=== PATIENT | male | born 1965 | race Caucasian/White ===

== ENCOUNTER 2018-12-23 08:09 | Day surgery (SDC) | payer OTHER ==
[~2018-12-23] VITALS: Ht 177.8 cm; Wt 77.7 kg
== END 2018-12-23 10:00 | disposition home or self-care (01) ==
LOC: ORSCSDS 08:09
PROVIDERS: Internal Medicine Gastroenterology
PROC: 0DBP8ZX Excision of Rectum, Via Natural or Artificial Opening Endoscopic, Diagnostic (ICD-10-PCS; principal; 2018-12-23 09:30)
PROC: 0DBN8ZX Excision of Sigmoid Colon, Via Natural or Artificial Opening Endoscopic, Diagnostic (ICD-10-PCS; principal; 2018-12-23 09:30)
DX: Z12.11 Encounter for screening for malignant neoplasm of colon (principal); D12.5 Benign neoplasm of sigmoid colon; D12.8 Benign neoplasm of rectum; K57.30 Diverticulosis of large intestine without perforation or abscess without bleeding; K64.8 Other hemorrhoids; I10 Essential (primary) hypertension; Z87.891 Personal history of nicotine dependence
CPT/HCPCS: 88305; J2250; J2704; J7120

== ENCOUNTER 2019-07-30 08:46 | Day surgery (SDC) | payer OTHER | END 2019-07-30 23:52 | disposition home or self-care (01) | LOC: RAD 08:46 | DX: M24.412 Recurrent dislocation, left shoulder (principal); M19.012 Primary osteoarthritis, left shoulder; M75.82 Other shoulder lesions, left shoulder; S43.432A Superior glenoid labrum lesion of left shoulder, initial encounter | CPT/HCPCS: 20610; 73222; 77002; A9577; Q9967 ==

== ENCOUNTER 2020-02-03 13:06 | Day surgery (SDC) | payer OTHER ==
[~2020-02-03] VITALS: Ht 177.8 cm; Wt 72.4 kg
[~2020-02-03 13:06] MED LIST: Voltaren100 GM
--- NOTE | 2020-02-03 14:00 | NUR ---
02/03/20 1400 Shelly Hall PRP DRAWN, ANTICOAG ADDED, DELIVERED TO OR AND SPUN.
--- NOTE | 2020-02-03 15:10 | NUR ---
02/03/20 1510 Sonya Cardenas 1MG/CC EPI ADDED INTO FIRST 3 BAGS OF EPI.
--- NOTE | 2020-02-03 16:11 | NUR ---
02/03/20 4501 Ramona Ricardo RECEIVED REPORT FROM GISELLE ALLEN. PATIENT IN GURNEY, AWAKE AND TALKING AND ANSWERING QUESTIONS APPROPRIATELY. WILL MOVE TO STEPDOWN.
== END 2020-02-03 17:08 | disposition home or self-care (01) ==
LOC: ORSCSDS 13:06
PROVIDERS: Orthopaedic Surgery
PROC: 0RNK4ZZ Release Left Shoulder Joint, Percutaneous Endoscopic Approach (ICD-10-PCS; principal; 2020-02-03 14:30)
PROC: 0LU247Z Supplement Left Shoulder Tendon with Autologous Tissue Substitute, Percutaneous Endoscopic Approach (ICD-10-PCS; principal; 2020-02-03 14:30)
PROC: 0LQ24ZZ Repair Left Shoulder Tendon, Percutaneous Endoscopic Approach (ICD-10-PCS; principal; 2020-02-03 14:30)
PROC: 0RQK4ZZ Repair Left Shoulder Joint, Percutaneous Endoscopic Approach (ICD-10-PCS; principal; 2020-02-03 14:30)
DX: M75.112 Incomplete rotator cuff tear or rupture of left shoulder, not specified as traumatic (principal); M75.42 Impingement syndrome of left shoulder; M19.012 Primary osteoarthritis, left shoulder; M24.412 Recurrent dislocation, left shoulder; S43.002A Unspecified subluxation of left shoulder joint, initial encounter; E78.5 Hyperlipidemia, unspecified; Z87.891 Personal history of nicotine dependence; Z79.899 Other long term (current) drug therapy
CPT/HCPCS: C1713; J0171; J0690; J1100; J1885; J2250; J2405; J2704; J2710; J3010; J7120

== ENCOUNTER 2020-08-17 10:21 | Day surgery (SDC) | payer OTHER ==
[~2020-08-17] VITALS: Ht 177.8 cm; Wt 75.5 kg
[~2020-08-17 10:21] MED LIST changes: +Percocet 5-3251 EACH
--- NOTE | 2020-08-17 11:03 | NUR ---
08/17/20 1103 TABATHA CALLAHAN INTERSCALENE BLOCK COMPLETED AT BEDSIDE. TIME OUT AND SITE CHECK COMPLETED WITH DR. ANDERSON. PT TOLERATED PROCEDURE WELL.
== END 2020-08-17 13:42 | disposition home or self-care (01) ==
LOC: ORSCSDS 10:21
PROVIDERS: Orthopaedic Surgery
PROC: 0RBJ4ZZ Excision of Right Shoulder Joint, Percutaneous Endoscopic Approach (ICD-10-PCS; principal; 2020-08-17 11:30)
PROC: 0RNJ4ZZ Release Right Shoulder Joint, Percutaneous Endoscopic Approach (ICD-10-PCS; principal; 2020-08-17 11:30)
PROC: 0LQ14ZZ Repair Right Shoulder Tendon, Percutaneous Endoscopic Approach (ICD-10-PCS; principal; 2020-08-17 11:30)
DX: M75.121 Complete rotator cuff tear or rupture of right shoulder, not specified as traumatic (principal); M75.41 Impingement syndrome of right shoulder; M19.011 Primary osteoarthritis, right shoulder; S46.111A Strain of muscle, fascia and tendon of long head of biceps, right arm, initial encounter
CPT/HCPCS: C1713; J0171; J0690; J1100; J1885; J2001; J2250; J2405; J2704; J3010; J7120